=== PATIENT | male | born 1990 ===

== ENCOUNTER 2017-02-08 06:32 | Emergency (ER) | payer SELFPAY ==
[2017-02-08 06:37] VITALS: RESP 18; O2SAT 98
--- NOTE | 2017-02-08 07:19 | C.PDOC ---
History Of Present Illness 26 y/o male presents to ED with c/o painful rash over the left side of his abdomen and chest that appeared 3 days ago. Pt states he has been experiencing pain in that area for the last 2 weeks before rash appeared. Denies any medical problems, medications, or other symptoms. Time Seen by Provider: 02/08/17 07:04 Chief Complaint (Nursing): Abnormal Skin Integrity History Per: Patient History/Exam Limitations: no limitations Current Symptoms Are (Timing): Still Present Quality Of Symptoms: Painful, Itching Recent travel outside of the [place]: No Past Medical History Reviewed: Historical Data, Nursing Documentation, Vital Signs Vital Signs: Last Vital Signs Temp 98.5 F 02/08/17 07:24 Pulse 68 02/08/17 07:24 Resp 18 02/08/17 07:24 BP 130/72 02/08/17 07:24 Pulse Ox 100 02/08/17 07:24 - Medical History PMH: No Chronic Diseases Family History: States: Unknown Family Hx - Social History Hx Alcohol Use: No Hx Substance Use: Yes - Immunization History Hx Tetanus Toxoid Vaccination: No Hx Influenza Vaccination: No Hx Pneumococcal Vaccination: No Review Of Systems Except As Marked, All Systems Reviewed And Found Negative. Constitutional: Negative for: Fever, Chills Cardiovascular: Negative for: Chest Pain Respiratory: Negative for: Cough, Shortness of Breath Gastrointestinal: Negative for: Nausea, Vomiting, Abdominal Pain Skin: Positive for: Rash Neurological: Negative for: Headache, Dizziness Physical Exam - Physical Exam Appears: Non-toxic, No Acute Distress Skin: Warm, Dry, Rash (vesicular rash in dermatomal distribution to left upper abdomen and lateral chest wall) Head: Atraumatic, Normacephalic Chest: Symmetrical Cardiovascular: Rhythm Regular Respiratory: Normal Breath Sounds, No Rales, No Rhonchi, No Wheezing Gastrointestinal/Abdominal: Soft, No Tenderness Extremity: Normal ROM Neurological/Psych: Oriented x3, Normal Speech, Normal Cognition ED Course And Treatment O2 Sat by Pulse Oximetry: 98 (RA) Pulse Ox Interpretation: Normal Disposition - Disposition Disposition: HOME/ ROUTINE Disposition Time: 07:24 Condition: STABLE Forms: [facility] (Vietnamese) - Clinical Impression Clinical Impression: Herpes zoster - Scribe Statement The provider has reviewed the documentation as recorded by the Scribe SM All medical record entries made by the Scribe were at my direction and personally dictated by me. I have reviewed the chart and agree that the record accurately reflects my personal performance of the history, physical exam, medical decision making, and the department course for this patient. I have also personally directed, reviewed, and agree with the discharge instructions and disposition.
[2017-02-08 07:28] VITALS: BP 130/72; PULSE 68; TEMP 98.5
== END 2017-02-08 07:28 | disposition home or self-care (01) ==
LOC: C.ER 06:32
DX: B02.9 Zoster without complications (principal)